=== PATIENT | female | born 1955 | race Caucasian/White ===

== ENCOUNTER 2022-12-16 14:56 | Observation (INO) | payer MEDICARE, SELFPAY ==
[2022-12-16] VITALS (44 sets, daily range): BP systolic 98–152; BP diastolic 69–104; PULSE 91–122; RESP 14; TEMP 35.2–35.6; O2SAT 85–100
--- NOTE | 2022-12-16 15:14 | ED_ITS ---
HPI - General Adult General Time Seen by Provider: 15:14 Date Seen: 12/16/22 Chief complaint: Weakness Stated complaint: Hypoglycemia Time Seen by Provider: 12/16/22 15:14 Source: patient, family, EMS and RN notes reviewed Mode of arrival: EMS Limitations: no limitations History of Present Illness HPI narrative: patient was brought in by EMS from [place] where she resides alone. Her brother had went to the house this afternoon and found her down on the floor. She states that she was going to the back door this morning and fell. She was too weak to get up. She denies any new pain. She is complained of some left leg pain at times per her brother, patient states it is not painful at times she states it is numb. She denies any alcohol or smoking. Her family notes that for basically about a year they have seen her but just at her door way, have not went into the house. They feel that she suffers from depression. Patient is declining any pain at this time, not short of breath, no abdominal symptoms. She denies any pain in her extremities. Denies hitting her head or loss of consciousness, no headache. She can recite her address to me, no she has been brought to [facility], knows it is 2022 and that the month is December. She is concerned about her dog being left at home, family members have seen to his cares. She denies any traumatic change at this time, states her left leg is not painful. No left knee or foot pain. No pelvic pain. EMS did find patient to have a reading of low glucose which nursing staff thought would be under 20. EN route they did give her 200 mL of D10. Her sugar I believe was 116 on arrival here. her brother feels that she is probably had 100 lb weight loss over maybe the last year. After further discussion with him later in the evening, he had actually seen her in the morning and she would not let him in to come help her. He had talked to his mom in the afternoon who stated she had not heard from her. He went back and found her on the floor again and then helped her up. Related Data Home Medications Medication Instructions Recorded Confirmed No Known Home Medications 12/16/22 12/16/22 Allergies Allergy/AdvReac Type Severity Reaction Status Date / Time No Known Drug Allergies Allergy Verified 12/16/22 15:36 Review of Systems Status of ROS: Reports: 10 or more systems reviewed and unremarkable except as noted in History and below PFSH PFSH Social History Smoking Status: Current some day smoker What tobacco products do you use: cigarettes Do you use any of these nicotine containing products: Smokeless Tobacco Second hand tobacco smoke exposure: No How often do you have a drink containing alcohol: never How often do you have six or more drinks on one occasion: Never AUDIT-C Alcohol total score: 0 Non-prescribed substance use: denies use service: No Exam Const: Vital Signs, click to edit/add: Vital Signs - 24 hr 12/16/22 15:02 12/16/22 15:19 12/16/22 15:20 Temperature 95.3 F L Pulse Rate 105 H 106 H Pulse Rate [Right Pulse Oximeter] 109 H Respiratory Rate 14 Blood Pressure 123/82 Blood Pressure [Ri ght Upper Arm] 121/82 Pulse Oximetry 100 94 95 Oxygen Delivery Me thod Room Air Oxygen Flow Rate 12/16/22 15:30 12/16/22 15:31 12/16/22 15:45 Temperature Pulse Rate 106 H 109 H 108 H Pulse Rate [Right Pulse Oximeter] Respiratory Rate Blood Pressure 116/87 Blood Pressure [Ri ght Upper Arm] Pulse Oximetry 95 100 97 Oxygen Delivery Me thod Oxygen Flow Rate 12/16/22 15:46 12/16/22 16:07 12/16/22 16:16 Temperature Pulse Rate 107 H Pulse Rate [Right Pulse Oximeter] Respiratory Rate Blood Pressure 116/90 H 120/86 121/72 Blood Pressure [Ri ght Upper Arm] Pulse Oximetry 95 Oxygen Delivery Me thod Oxygen Flow Rate 12/16/22 16:18 12/16/22 16:31 12/16/22 16:46 Temperature Pulse Rate 108 H Pulse Rate [Right Pulse Oximeter] Respiratory Rate Blood Pressure 120/77 110/86 Blood Pressure [Ri ght Upper Arm] Pulse Oximetry 96 Oxygen Delivery Me thod Oxygen Flow Rate 12/16/22 17:19 12/16/22 17:08 12/16/22 17:09 Temperature 96.0 F L Pulse Rate 114 H Pulse Rate [Right Pulse Oximeter] Respiratory Rate Blood Pressure 98/69 Blood Pressure [Ri ght Upper Arm] Pulse Oximetry 92 Oxygen Delivery Me thod Oxygen Flow Rate 12/16/22 17:15 12/16/22 17:16 12/16/22 17:30 Temperature Pulse Rate 113 H 115 H 115 H Pulse Rate [Right Pulse Oximeter] Respiratory Rate Blood Pressure 106/75 119/79 Blood Pressure [Ri ght Upper Arm] Pulse Oximetry 92 93 94 Oxygen Delivery Me thod Oxygen Flow Rate 12/16/22 17:31 12/16/22 17:45 12/16/22 17:46 Temperature Pulse Rate 118 H 122 H 115 H Pulse Rate [Right Pulse Oximeter] Respiratory Rate Blood Pressure 109/93 H Blood Pressure [Ri ght Upper Arm] Pulse Oximetry 93 Oxygen Delivery Me thod Oxygen Flow Rate 12/16/22 18:01 12/16/22 18:03 12/16/22 18:15 Temperature Pulse Rate 113 H 111 H 114 H Pulse Rate [Right Pulse Oximeter] Respiratory Rate Blood Pressure 117/102 H Blood Pressure [Ri ght Upper Arm] Pulse Oximetry 94 94 96 Oxygen Delivery Me thod Oxygen Flow Rate 12/16/22 18:16 12/16/22 18:30 12/16/22 18:31 Temperature Pulse Rate 113 H 113 H 113 H Pulse Rate [Right Pulse Oximeter] Respiratory Rate Blood Pressure 120/82 124/79 Blood Pressure [Ri ght Upper Arm] Pulse Oximetry 95 95 95 Oxygen Delivery Me thod Oxygen Flow Rate 12/16/22 21:29 12/16/22 18:32 12/16/22 18:45 Temperature Pulse Rate 115 H 116 H Pulse Rate [Right Pulse Oximeter] Respiratory Rate Blood Pressure Blood Pressure [Ri ght Upper Arm] Pulse Oximetry 86 L 94 97 Oxygen Delivery Me thod Ambu-Bag Oxygen Flow Rate 12/16/22 18:46 12/16/22 19:00 12/16/22 19:02 Temperature Pulse Rate 115 H 117 H 115 H Pulse Rate [Right Pulse Oximeter] Respiratory Rate Blood Pressure 109/91 H 127/91 H Blood Pressure [Ri ght Upper Arm] Pulse Oximetry 95 96 94 Oxygen Delivery Me thod Oxygen Flow Rate 12/16/22 19:15 12/16/22 19:16 12/16/22 19:30 Temperature Pulse Rate 116 H 121 H 118 H Pulse Rate [Right Pulse Oximeter] Respiratory Rate Blood Pressure 127/89 Blood Pressure [Ri ght Upper Arm] Pulse Oximetry 94 94 95 Oxygen Delivery Me thod Oxygen Flow Rate 12/16/22 19:32 04/11/23 19:45 12/16/22 19:46 Temperature Pulse Rate 120 H 115 H 114 H Pulse Rate [Right Pulse Oximeter] Respiratory Rate Blood Pressure 111/96 H 114/94 H Blood Pressure [Ri ght Upper Arm] Pulse Oximetry 92 94 94 Oxygen Delivery Me thod Oxygen Flow Rate 12/16/22 20:00 12/16/22 20:15 12/16/22 20:17 Temperature Pulse Rate 116 H 91 120 H Pulse Rate [Right Pulse Oximeter] Respiratory Rate Blood Pressure 126/82 Blood Pressure [Ri ght Upper Arm] Pulse Oximetry 91 86 L 85 L Oxygen Delivery Me thod Oxygen Flow Rate 12/16/22 20:27 12/16/22 20:34 Temperature Pulse Rate Pulse Rate [Right Pulse Oximeter] Respiratory Rate Blood Pressure 152/76 H 122/104 H Blood Pressure [Ri ght Upper Arm] Pulse Oximetry Oxygen Delivery Me thod Oxygen Flow Rate Alert 67-year-old female but cachectic. Has very flat affect. Later did see her smile at her sister however. Pupils are equal round, sclera clear. Scalp and face atraumatic. Oropharynx with very dry mucosa, tongue is dry. She is missing some of her teeth but other teeth looked to be in good repair. No midline tenderness on her neck, neck is slender, no masses, no thyromegaly noted. Lungs are clear with good air entry. CV faster regular, no murmurs. Abdomen is scaphoid, nontender no masses or organomegaly noted. She is moving all extremities, follows command. She has no pretibial edema. Some bruises but no open wounds of her extremities visualized. Documenting provider has reviewed patient's vital signs: yes Course Course Hospital Course: Patient needs a full complement of labs. Her temperature is low which could be exposure from lying on the ground not been able to get up. Infection is possible here. Nutritional deficiencies, significant depression affecting her medical status is certainly a possibility. She looks cachectic. She will be on cardiac monitoring, pulse oximetry, full complement of labs including blood cultures. We will start with a portable chest x-ray and we will do a head CT. Reevaluation(s) Reevaluation #1: Reviewed with patient and her sister whom is present the elevated troponin. She has had no chest symptoms. Denies any chest pain. EKG shows potential ischemic changes. Her creatinine is at 1.3. She is lucid and conversive with me. Reviewed with her that she does not have much body weight. She initially told me that she is eating and cooking for herself but her sister stated she did not think she was eating very much. The patient then smiled and states she just snacks. Time: 16:39 Reevaluation #2: Nursing staff requested that I look at her perineum. She had stooled in her undergarments. There are pressure ulcers on her buttocks I saw 3 separate ones on the left buttock, some erythema covered in stool on the right one. Nursing staff is working to clean her up. We are going to plan to do a catheterized specimen to obtain urine. No purulent drainage is noted from these wounds at this time. Time: 17:48 Reevaluation #3: Spoke with patient and her 2 siblings. We reviewed her pneumonia, her pressure ulcers, her elevated troponin without any active chest pain, abnormal EKG and her generalized debilitated state. I know that there is a wait list at [facility]. I am going to talk to the lidar scientist, patient's current state may preclude her from having angiogram safely. Reviewed with family that he just need to talk to Cardiology given the situation. I am repeating her lactate and her troponin. We are going to check with other facilities to see if there are any beds anywhere. It is possible that she may need to stay with us, have ongoing monitoring, have an echo tomorrow. Again she is chest pain-free at this time. Time: 19:00 Additional Reevaluation(s): Nursing staff reported to me that patient's respiratory status was changing, they thought that she was perhaps dying. I found her in agonal respiration. We attempted to recycle a blood pressure. Nursing staff could not feel a peripheral pulse. We could see cardiac activity on the monitor but patient was really not responsive. Compressions were started, bag mask was initiated for breathing. I could not feel peripheral pulses. Did request 1 mg IV epinephrine and then went to talk to the family. Dr. Mendoza did look with cardiac ultrasound and she had very hypokinetic activity, I could visualize on the ultrasound screen as well. Did take leave to talk with family. Initially they were not sure what she would want, they stated none of any of them had talked about wishes. I left to check on the patient again and stated I would come back, gave them some time to talk. Patient did seem to have some response to 1 mg IV epinephrine, seemed to have some improve independent breathing, did move her arms some but was not meaningful and was not meaningfully responding to us. She had a a perfusing rhythm with blood pressure. Over the next 5 minutes Justin, her respiratory rate started to space out, capnography was not capturing any meaningful air movement, heart rate started to space out in become bradycardic again. We initiated CPR, supported ventilation and I ordered another 1 mg IV epinephrine. I had talked about norepinephrine to support her blood pressure in staff did retrieve it but we did not start. While they initiated the CPR and a supportive ventilation, went to talk to her brother and sister again. They had decided that they wanted no further interventions, wanted us to cease efforts, did not want her intubated. She at this time then was allowed to pass. Family was allowed to come back in with her. She did not make any further efforts for movement. I left family be with her for moment. When I came back she indeed had no spontaneous respiratory effort, no cardiac activity and time of was 8:47. Consultations Consultation #1: Reviewed with [facility] Dr. Wyatt. She would medically manage patient's other problems, does not feel that the patient needs transfer from a cardiology standpoint. She would only do aspirin, feels that the patient's bleeding risk from other anticoagulants maybe too high at this time. She does agree with getting an echo tomorrow. If we have further cardiac concerns in the interim we can contact her back. I have subsequently seen her total CK while talking to the lidar scientist. I have ordered another L of normal saline as well as LR maintenance. Will order 162 mg oral aspirin at this time. Her IV antibiotics are infusing for her pneumonia. Also see that she has a UTI. Time: 19:49 Vital Signs Vital signs: Initial Vital Signs Temperature 95.3 F L 12/16/22 15:02 Temperature Source Temporal Artery Scan 12/16/22 15:02 Pulse Rate 109 H 12/16/22 15:02 Respiratory Rate 14 12/16/22 15:02 Blood Pressure 121/82 12/16/22 15:02 Blood Pressure Mean 95 12/16/22 15:02 Pulse Oximetry 100 04/11/23 15:02 Oxygen Delivery Method Room Air 12/16/22 15:02 Vital Signs Temperature 95.3 F L 12/16/22 15:02 Pulse Rate 109 H 12/16/22 15:02 Respiratory Rate 14 12/16/22 15:02 Blood Pressure 121/82 12/16/22 15:02 Pulse Oximetry 100 12/16/22 15:02 Oxygen Delivery Method Room Air 12/16/22 15:02 Temperature 96.0 F L 12/16/22 17:19 Pulse Rate 120 H 12/16/22 20:17 Respiratory Rate 14 12/16/22 15:02 Blood Pressure 122/104 H 12/16/22 20:34 Pulse Oximetry 86 L 12/16/22 21:29 Oxygen Delivery Method Ambu-Bag 12/16/22 21:29 Oxygen Flow Rate 15 12/16/22 21:29 Medical Decision Making Lab Data Lab results reviewed: Yes I reviewed the patient's lab results Labs: Lab Results 12/16/22 12/16/22 12/16/22 Range/Units 15:15 15:16 15:22 WBC (4.50-11.00) K/uL RBC (4.00-5.20) m/uL Hgb (12.0-16.0) gm/dL Hct (33.0-51.0) % MCV (80-100) fL MCH (26-34) pg MCHC (32-36) gm/dL RDW Coeff of Anjelica (11.5-15.5) % Plt Count (140-440) K/uL Neut % (Auto) (42.0-72.0) % Lymph % (Auto) (20-44) % [place] % (Auto) (0.0-11.0) % Eos % (Auto) (0.0-7.0) % Baso % (Auto) (0.0-3.0) % Neut # (Auto) (1.7-7.0) K/uL Lymph # (Auto) (0.90-2.90) K/uL [place] # (Auto) (0.00-0.90) K/UL Eos # (Auto) (0.00-0.50) K/uL Baso # (Auto) (0.00-0.30) K/uL VBG pH (7.32-7.43) VBG pCO2 (40-50) mmHG VBG pO2 (25-47) mmHG VBG HCO3 (21-28) mmol/L Sodium 132 L (135-149) mmol/L Potassium 3.8 (3.6-5.1) mmol/L Chloride 89 L (96-114) mmol/L Carbon Dioxide 13 L (20-32) mmol/L BUN 19 (7-30) mg/dL Creatinine 1.3 (0.5-1.5) mg/dL Estimated GFR 46 ml/min Glucose 282 H (60-115) mg/dL Lactate 22.0 H* (0.5-1.9) mmol/L Calcium 8.7 (8.4-10.6) mg/dL Magnesium 2.7 H (1.5-2.6) mg/dL Total Bilirubin 2.5 H (0.1-1.5) mg/dL AST 161 H (12-35) U/L ALT 61 H (4-35) U/L Alkaline Phosphatase 68 (40-150) U/L Total Creatine Kinase (41-117) U/L Troponin I 0.55 H* (0.01-0.04) ng/mL NT-Pro-B Natriuret Pep 34149 pg/mL Total Protein 6.1 (6.0-8.3) g/dL Albumin 3.4 (3.3-5.0) g/dL Procalcitonin (<0.50) ng/mL TSH 3.390 (0.270-4.200) uIU/mL Urine Color (Yellow) Urine Appearance (Clear) Urine pH (5.0-8.5) Ur Specific [place] (1.000-1.030) Urine Protein (Negative) Urine Glucose (UA) (Negative) Urine Ketones (Negative) Urine Blood (Negative) Urine Nitrite (Negative) Urine Bilirubin (Negative) Urine Urobilinogen (0.2-1.0) Ur Leukocyte Esterase (Negative) Urine RBC (0-2) Urine WBC (0-5) Ur Squamous Epith Cells (None-Few) Urine Bacteria (None) Fine Granular Casts (None) Ethyl Alcohol < 0.01 L (0.01-0.03) % SARS-CoV-2 (PCR) Negative SARS-CoV-2 (Negative) Influenza Type A (PCR) Negative PCR FLU A (Negative) Influenza Type B (PCR) Negative PCR FLU B (Negative) RSV (PCR) Negative PCR RSV (Negative) 12/16/22 12/16/22 12/16/22 Range/Units 15:30 15:43 17:52 WBC 16.03 H (4.50-11.00) K/uL RBC 3.86 L (4.00-5.20) m/uL Hgb 13.0 (12.0-16.0) gm/dL Hct 40.2 (33.0-51.0) % MCV 104 H (80-100) fL MCH 34 (26-34) pg MCHC 32 (32-36) gm/dL RDW Coeff of Anjelica 17.6 H (11.5-15.5) % Plt Count 167 (140-440) K/uL Neut % (Auto) 93.2 H (42.0-72.0) % Lymph % (Auto) 4.2 L (20-44) % Briscoe % (Auto) 1.6 (0.0-11.0) % Eos % (Auto) 0.0 (0.0-7.0) % Baso % (Auto) 0.1 (0.0-3.0) % Neut # (Auto) 14.90 H (1.7-7.0) K/uL Lymph # (Auto) 0.70 L (0.90-2.90) K/uL [place]isco[place] # (Auto) 0.30 (0.00-0.90) K/UL Eos # (Auto) 0.00 (0.00-0.50) K/uL Baso # (Auto) 0.00 (0.00-0.30) K/uL VBG pH 7.214 L* (7.32-7.43) VBG pCO2 37 L (40-50) mmHG VBG pO2 27.9 (25-47) mmHG VBG HCO3 15 L (21-28) mmol/L Sodium (135-149) mmol/L Potassium (3.6-5.1) mmol/L Chloride (96-114) mmol/L Carbon Dioxide (20-32) mmol/L BUN (7-30) mg/dL Creatinine (0.5-1.5) mg/dL Estimated GFR ml/min Glucose (60-115) mg/dL Lactate (0.5-1.9) mmol/L Calcium (8.4-10.6) mg/dL Magnesium (1.5-2.6) mg/dL Total Bilirubin (0.1-1.5) mg/dL AST (12-35) U/L ALT (4-35) U/L Alkaline Phosphatase (40-150) U/L Total Creatine Kinase 5176 H (41-117) U/L Troponin I (0.01-0.04) ng/mL NT-Pro-B Natriuret Pep pg/mL Total Protein (6.0-8.3) g/dL Albumin (3.3-5.0) g/dL Procalcitonin 0.81 H (<0.50) ng/mL TSH (0.270-4.200) uIU/mL Urine Color Brown A (Yellow) Urine Appearance Clear (Clear) Urine pH 6.0 (5.0-8.5) Ur Specific [place] 1.020 (1.000-1.030) Urine Protein 2+ A (Negative) Urine Glucose (UA) Negative (Negative) Urine Ketones Trace A (Negative) Urine Blood 3+ A (Negative) Urine Nitrite Positive A (Negative) Urine Bilirubin 2+ A (Negative) Urine Urobilinogen 2.0 A (0.2-1.0) Ur Leukocyte Esterase Negative (Negative) Urine RBC 2-5 A (0-2) Urine WBC 5-10 A (0-5) Ur Squamous Epith Cells None (None-Few) Urine Bacteria None (None) Fine Granular Casts Few A (None) Ethyl Alcohol (0.01-0.03) % SARS-CoV-2 (PCR) (Negative) Influenza Type A (PCR) (Negative) Influenza Type B (PCR) (Negative) RSV (PCR) (Negative) 12/16/22 Range/Units 19:05 WBC (4.50-11.00) K/uL RBC (4.00-5.20) m/uL Hgb (12.0-16.0) gm/dL Hct (33.0-51.0) % MCV (80-100) fL MCH (26-34) pg MCHC (32-36) gm/dL RDW Coeff of Anjelica (11.5-15.5) % Plt Count (140-440) K/uL Neut % (Auto) (42.0-72.0) % Lymph % (Auto) (20-44) % [place]isco[place] % (Auto) (0.0-11.0) % Eos % (Auto) (0.0-7.0) % Baso % (Auto) (0.0-3.0) % Neut # (Auto) (1.7-7.0) K/uL Lymph # (Auto) (0.90-2.90) K/uL [place] # (Auto) (0.00-0.90) K/UL Eos # (Auto) (0.00-0.50) K/uL Baso # (Auto) (0.00-0.30) K/uL VBG pH (7.32-7.43) VBG pCO2 (40-50) mmHG VBG pO2 (25-47) mmHG VBG HCO3 (21-28) mmol/L Sodium (135-149) mmol/L Potassium (3.6-5.1) mmol/L Chloride (96-114) mmol/L Carbon Dioxide (20-32) mmol/L BUN (7-30) mg/dL Creatinine (0.5-1.5) mg/dL Estimated GFR ml/min Glucose (60-115) mg/dL Lactate 18.0 H* (0.5-1.9) mmol/L Calcium (8.4-10.6) mg/dL Magnesium (1.5-2.6) mg/dL Total Bilirubin (0.1-1.5) mg/dL AST (12-35) U/L ALT (4-35) U/L Alkaline Phosphatase (40-150) U/L Total Creatine Kinase (41-117) U/L Troponin I 1.00 H* (0.01-0.04) ng/mL NT-Pro-B Natriuret Pep pg/mL Total Protein (6.0-8.3) g/dL Albumin (3.3-5.0) g/dL Procalcitonin (<0.50) ng/mL TSH (0.270-4.200) uIU/mL Urine Color (Yellow) Urine Appearance (Clear) Urine pH (5.0-8.5) Ur Specific [place] (1.000-1.030) Urine Protein (Negative) Urine Glucose (UA) (Negative) Urine Ketones (Negative) Urine Blood (Negative) Urine Nitrite (Negative) Urine Bilirubin (Negative) Urine Urobilinogen (0.2-1.0) Ur Leukocyte Esterase (Negative) Urine RBC (0-2) Urine WBC (0-5) Ur Squamous Epith Cells (None-Few) Urine Bacteria (None) Fine Granular Casts (None) Ethyl Alcohol (0.01-0.03) % SARS-CoV-2 (PCR) (Negative) Influenza Type A (PCR) (Negative) Influenza Type B (PCR) (Negative) RSV (PCR) (Negative) Imaging Data CT scan - head: Attestation: I have reviewed the pertinent imaging results. Radiologist's impression: Patient: KAELYN KRISHNA Facility:?[facility] Patient ID:?[id number] Site Patient ID:?[id number]. Site :?1955 Study:?CT Head w/o Contrast-12/16/2022 4:04:42 PM Ordering Physician:Sarah East Final Report: INDICATION: Left leg numbness, altered mental status.. TECHNIQUE: Head CT without contrast. COMPARISON: None. FINDINGS: CSF spaces: Within normal limits for age. Brain parenchyma and extra-axial spaces: There are nonspecific low attenuation white matter changes consistent with chronic microvascular disease. No sign of mass, hemorrhage, or midline shift. 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 Additional small lacunar-type infarct in the right basal ganglia. Skull base and calvarium: Air-fluid level in the right maxillary sinus. Otherwise, the visualized paranasal sinuses and mastoid air cells demonstrate no acute or significant findings. The visualized orbits are grossly unremarkable. No skull fractures. IMPRESSION: No acute intracranial process identified. If acute stroke is suspected, consider further evaluation with MRI. Please note that all CT scans at this facility use dose modulation, iterative reconstruction, and/or weight-based dosing when appropriate to reduce radiation dose to as low as reasonably achievable. Dictated by Sharron Malave MD @ 12/16/2022 4:26:47 PM (Electronic Signature) Chest x-ray: Attestation: I have reviewed the pertinent imaging results. Radiologist's impression: Patient: KAELYN KRISHNA Facility:?[facility] Patient ID:?[id number] Site Patient ID:?[id number]. Site :?1955 Study:?XRay Chest 1 VIEW-12/16/2022 4:04:30 PM Ordering Physician:Sarah East Final Report: INDICATION: Weakness. TECHNIQUE: Chest 1 view. COMPARISON: None. FINDINGS: No focal consolidation, pleural effusion, or pneumothorax. There are mild interstitial opacities in the left upper lung which may be infectious or inflamm atory. Pulmonary hyperinflation. Normal heart size and pulmonary vascularity. Aortic arch calcification. The bones are unremarkable. IMPRESSION: Mild interstitial opacities in the left upper lung may be infectious or inflammatory. Dictated by Medina Coates MD @ 12/16/2022 4:21:37 PM (Electronic Signature) CT scan - chest: Attestation: I have reviewed the pertinent imaging results. Radiologist's impression: Patient: GEORGIANA KRISHNA Facility:?[facility] Patient ID:?[id number] Site Patient ID:?[id number]. Site :?1955 Study:?CT Chest Angio w/ 95cc Isovue-370 PE Protocol-12/16/2022 5:13:52 PM Ordering Physician:Sarah East Final Report: INDICATION: Tachycardia. Elevated troponin, fall. TECHNIQUE: CT chest PE was acquired with 95 cc Isovue 370 IV contrast. COMPARISON: None. FINDINGS: Heart and vasculature: No cardiomegaly, no pericardial effusion. Atherosclerotic coronary artery calcifications. Epicardial lipomatosis is noted. Within limitations of motion artifact, no filling defects identified within the main, lobar, and contrast opacified portions of the segmental pulmonary arteries. Lungs and pleura: Mild centrilobular emphysema. Peribronchial ground-glass nodules in the left lower lobe, consistent with infectious etiology. Few additional scattered punctate pulmonary nodules throughout the lungs. There is a small focus of subpleural spiculation at the right lung apex (series 7, image 34). No evidence of pulmonary infarct. Thyroid and lower neck: No suspicious thyroid nodule. Mediastinum/destiny: No lymphadenopathy. Chest wall: No axillary lymphadenopathy. Upper abdomen: Focal scarring of the right kidney. Extensive vascular calcifications. No acute abnormality. Bones: Multilevel degenerative changes of the spine. No suspicious/aggressive focal osseous lesion. IMPRESSION: 1. Within limitations of motion artifact, no evidence of acute pulmonary embolus. Subsegmental pulmonary arteries are not well evaluated, particularly in the bilateral lower lobes. 2. Peribronchial ground-glass opacities in the left lower lobe, consistent with infectious process. 3. Mild centrilobular emphysema. Few scattered punctate pulmonary nodules throughout the lungs. Small focus of subpleural spiculation at the right lung apex, which may reflect scarring. Recommend follow-up CT chest in 6-12 months. Please note that all CT scans at this facility use dose modulation, iterative reconstruction, and/or weight-based dosing when appropriate to reduce radiation dose to as low as reasonably achievable. Dictated by Wilfrid Shankar MD @ 12/16/2022 6:13:06 PM (Electronic Signature) ECG Data Attestation: I personally reviewed and interpreted this ECG as follows: ( Sinus tachycardia, 109 beats per minute. Flipped T-waves, possible ischemia inferior and anterolateral precordial leads. There is significant artifact in these EKGs. QT corrected) Prior ECG tracings: not available for review Critical Care Time Critical Care Time Critical Care Time: Yes Attestation: The patient required my highest level preparedness to intervene emergently and I personally spent this critical care time directly and personally managing the patient. This critical care time included: Obtaining a history; Examining the patient; Pulse oximetry; Ordering and reviewing of studies; Arranging urgent treatment with development of a management plan; Evaluation of patients response to treatment; Frequent reassessment discussions with other providers. This critical care time was performed to assess and manage the high probability of imminent life-threatening deterioration that could result in multiorgan failure. It was exclusive of separate billable procedures and [facility] and [facility] time. Total Critical Care Time in Minutes: 30 Discharge Plan Discharge Clinical Impression: Elevated troponin, Rhabdomyolysis, Pneumonia, Acute UTI, Pressure ulcers of skin of multiple topographic sites Patient Disposition: Condition: Unchanged
--- NOTE | 2022-12-16 15:15 | CRLHL7_ITS ---
For Patients: As a result of the Century Cures Act, medical imaging exams and procedure reports are released immediately into your electronic medical record. You may view this report before your referring provider. If you have questions, please contact your health care provider. INDICATION: Left leg numbness, altered mental status.. TECHNIQUE: Head CT without contrast. COMPARISON: None. FINDINGS: CSF spaces: Within normal limits for age. Brain parenchyma and extra-axial spaces: There are nonspecific low attenuation white matter changes consistent with chronic microvascular disease. No sign of mass, hemorrhage, or midline shift. 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 Additional small lacunar-type infarct in the right basal ganglia. Skull base and calvarium: Air-fluid level in the right maxillary sinus. Otherwise, the visualized paranasal sinuses and mastoid air cells demonstrate no acute or significant findings. The visualized orbits are grossly unremarkable. No skull fractures. IMPRESSION: No acute intracranial process identified. If acute stroke is suspected, consider further evaluation with MRI. Please note that all CT scans at this facility use dose modulation, iterative reconstruction, and/or weight-based dosing when appropriate to reduce radiation dose to as low as reasonably achievable. Dictated by Sharron Malave MD @ 12/16/2022 4:26:47 PM (Electronically Signed)
--- NOTE | 2022-12-16 15:15 | CRLHL7_ITS ---
For Patients: As a result of the Cures Act, medical imaging exams and procedure reports are released immediately into your electronic medical record. You may view this report before your referring provider. If you have questions, please contact your health care provider. INDICATION: Weakness. TECHNIQUE: Chest 1 view. COMPARISON: None. FINDINGS: No focal consolidation, pleural effusion, or pneumothorax. There are mild interstitial opacities in the left upper lung which may be infectious or inflammatory. Pulmonary hyperinflation. Normal heart size and pulmonary vascularity. Aortic arch calcification. The bones are unremarkable. IMPRESSION: Mild interstitial opacities in the left upper lung may be infectious or inflammatory. Dictated by Medina Coates MD @ 12/16/2022 4:21:37 PM (Electronically Signed)
--- NOTE | 2022-12-16 15:19 | ED.NURSE ---
Willy Zamorano applied to pt.
[2022-12-16 15:42] LABS: Basophils Percent Auto 0.1 % (0.0-3.0); Hematocrit 40.2 % (33.0-51.0); Immature Granulocytes Pct Auto 0.9 %; Lymphocytes Percent Auto 4.2 % (20-44); Mean Corpuscular HGB Conc 32 gm/dL (32-36); Mean Corpuscular Hemoglobin 34 pg (26-34); Mean Corpuscular Volume 104 fL (80-100); Monocytes Percent Auto 1.6 % (0.0-11.0); Neutrophils Percent Auto 93.2 % (42.0-72.0); Platelet Count* 167 K/uL (140-440); RDW Coefficient of Variation % 17.6 % (11.5-15.5); Red Blood Count 3.86 m/uL (4.00-5.20); White Blood Count* 16.03 K/uL (4.50-11.00)
[2022-12-16] MEDS: 0.9 % SODIUM CHLORIDE 1000 ml 1,000 ML 500 ML IV ×2 (15:46→19:56)
[2022-12-16 15:53] LABS: HCO3 VBG 15 mmol/L (21-28); PCO2 VBG 37 mmHG (40-50); PO2 VBG 27.9 mmHG (25-47); pH VBG 7.214 (7.32-7.43)
[2022-12-16 16:01] LABS: Slide Review Reflex No
[2022-12-16 16:02] LABS: Chloride* 89 mmol/L (96-114)
[2022-12-16 16:03] LABS: Albumin* 3.4 g/dL (3.3-5.0); Potassium* 3.8 mmol/L (3.6-5.1); Sodium* 132 mmol/L (135-149)
[2022-12-16 16:05] LABS: Ethanol* < 0.01 % (0.01-0.03); Magnesium* 2.7 mg/dL (1.5-2.6)
[2022-12-16 16:06] LABS: Alkaline Phosphatase* 68 U/L (40-150); Bilirubin Total* 2.5 mg/dL (0.1-1.5); Blood Urea Nitrogen* 19 mg/dL (7-30); Calcium* 8.7 mg/dL (8.4-10.6); Carbon Dioxide* 13 mmol/L (20-32); Creatinine* 1.3 mg/dL (0.5-1.5); Estimated Glomerular Filt Rate 46 ml/min; Glucose* 282 mg/dL (60-115); Total Protein* 6.1 g/dL (6.0-8.3)
[2022-12-16 16:13] LABS: Aspartate Amino Transferase* 161 U/L (12-35)
[2022-12-16 16:20] LABS: PCR FLU A Negative PCR FLU A (Negative); PCR FLU B Negative PCR FLU B (Negative); PCR RSV Negative PCR RSV (Negative)
[2022-12-16 16:22] LABS: SARS PCR* Negative SARS-CoV-2 (Negative)
[2022-12-16 16:24] LABS: NT Pro B Type NatriureticPept* 23700 pg/mL; Troponin I* 0.55 ng/mL (0.01-0.04)
--- NOTE | 2022-12-16 16:28 | CRLHL7_ITS ---
For Patients: As a result of the Century Cures Act, medical imaging exams and procedure reports are released immediately into your electronic medical record. You may view this report before your referring provider. If you have questions, please contact your health care provider. INDICATION: Tachycardia. Elevated troponin, fall. TECHNIQUE: CT chest PE was acquired with 95 cc Isovue 370 IV contrast. COMPARISON: None. FINDINGS: Heart and vasculature: No cardiomegaly, no pericardial effusion. Atherosclerotic coronary artery calcifications. Epicardial lipomatosis is noted. Within limitations of motion artifact, no filling defects identified within the main, lobar, and contrast opacified portions of the segmental pulmonary arteries. Lungs and pleura: Mild centrilobular emphysema. Peribronchial ground-glass nodules in the left lower lobe, consistent with infectious etiology. Few additional scattered punctate pulmonary nodules throughout the lungs. There is a small focus of subpleural spiculation at the right lung apex (series 7, image 34). No evidence of pulmonary infarct. Thyroid and lower neck: No suspicious thyroid nodule. Mediastinum/destiny: No lymphadenopathy. Chest wall: No axillary lymphadenopathy. Upper abdomen: Focal scarring of the right kidney. Extensive vascular calcifications. No acute abnormality. Bones: Multilevel degenerative changes of the spine. No suspicious/aggressive focal osseous lesion. IMPRESSION: 1. Within limitations of motion artifact, no evidence of acute pulmonary embolus. Subsegmental pulmonary arteries are not well evaluated, particularly in the bilateral lower lobes. 2. Peribronchial ground-glass opacities in the left lower lobe, consistent with infectious process. 3. Mild centrilobular emphysema. Few scattered punctate pulmonary nodules throughout the lungs. Small focus of subpleural spiculation at the right lung apex, which may reflect scarring. Recommend follow-up CT chest in 6-12 months. Please note that all CT scans at this facility use dose modulation, iterative reconstruction, and/or weight-based dosing when appropriate to reduce radiation dose to as low as reasonably achievable. Dictated by Wilfrid Shankar MD @ 12/16/2022 6:13:06 PM (Electronically Signed)
[2022-12-16 16:42] LABS: Procalcitonin* 0.81 ng/mL (<0.50)
[2022-12-16 17:50] LABS: Creatine Kinase* 5176 U/L (41-117)
[2022-12-16 18:03] LABS: Alanine Aminotransferase* 61 U/L (4-35)
--- NOTE | 2022-12-16 18:12 | ED.NURSE ---
Pt incontinent with bowels. Reports she needs to urinate. When rolling patient on her side to use bed pain, multiple - approx 5 - pressure wounds of various sizes and depth on coccyx, spine and bottom were noted - Some with black eschar tissue and some open. Approx stage 2. Pt states she was aware of 1 or 2 of the sores but not to the extent described. Large bruise noted to right shoulder/rib/back area. MD notified and visualized pressure wounds.
[2022-12-16 18:13] LABS: Appearance Urine Clear (Clear); Bilirubin Urine 2+ (Negative); Blood Urine 3+ (Negative); Color Urine Brown (Yellow); Glucose Urine Negative (Negative); Ketones Urine Trace (Negative); Leukocyte Esterase Urine Negative (Negative); Nitrite Urine Positive (Negative); Protein Urine 2+ (Negative)
[2022-12-16] MEDS: 0.9 % SODIUM CHLORIDE 500 ML 500 ML IV (18:19)
[2022-12-16 18:23] LABS: Fine Granular Casts Urine Few
[2022-12-16] MEDS: cefTRIAXone 1 GM in 0.9 % SODIUM CHLORIDE Mini-bag 100 ML IVPB (19:41)
[2022-12-16] MEDS: AZITHROMYCIN 500 MG in 0.9 % SODIUM CHLORIDE 250 ml 250 ML 255 MG IVPB (19:41)
--- NOTE | 2022-12-16 20:20 | ED.NURSE ---
Called into room by nurse. Observed patient with agonal breathing, weak pulse, and unresponsive to sternal rub. Dr Cooper at bedside. Code koffi called. patient in PEA activity. Chest compression started at 2023. see code record for further documention.
[2022-12-16] MEDS: EPINEPHrine 0.1 MG/ML SYRINGE 1 MG IVP ×2 (20:24→20:33)
--- NOTE | 2022-12-16 22:22 | ED.NURSE ---
Time of Per Dr Cooper 2046
--- NOTE | 2022-12-16 23:01 | ED.NURSE ---
attended pt Low O2 sat alarm. pt was not responding to verbal stimuli. Placed on on O2 via cannula. O2 sats increased from 70's to low 90's. Pt eyes were deviated to left. Informed MD and primary RN of pt condition.
== END 2022-12-17 00:04 | disposition expired ==
LOC: ED 22:10 → MEDSURG 22:20
PROVIDERS: Admitting Provider Hospitalist; Emergency Provider Family Medicine; Visit Provider Hospitalist
DX: R00.0 Tachycardia, unspecified (principal); R77.8 Other specified abnormalities of plasma proteins; R94.31 Abnormal electrocardiogram [ECG] [EKG]; E16.2 Hypoglycemia, unspecified; M62.82 Rhabdomyolysis; J18.9 Pneumonia, unspecified organism; N39.0 Urinary tract infection, site not specified; R00.1 Bradycardia, unspecified; R53.1 Weakness; W19.XXXA Unspecified fall, initial encounter; R64 Cachexia; Z68.41 Body mass index [BMI] 40.0-44.9, adult; F32.A Depression, unspecified; L89.329 Pressure ulcer of left buttock, unspecified stage; L89.319 Pressure ulcer of right buttock, unspecified stage; R91.8 Other nonspecific abnormal finding of lung field; I70.0 Atherosclerosis of aorta; F17.210 Nicotine dependence, cigarettes, uncomplicated
CPT/HCPCS: 36415; 70450; 71045; 71260; 80053; 81001; 82077; 82550; 82803; 83605; 83735; 83880; 84145; 84443; 84484; 85025; 87040; 87086; 87631; 92950; 93005; 94761; 96361; 96365; 96375; 99285; 99291; J0171; J0456; J0696; J7030; J7050; J7120; Q9967